=== PATIENT | male | born 1965 | race Two or more races ===

== ENCOUNTER → 2017-08-20 | Outpatient (CLI) | payer BC ==
--- NOTE | 2017-08-20 09:48 | US ---
EXAMINATION TYPE: US thyroid st tissue head/neck DATE OF EXAM: 08/20/2017 COMPARISON: NONE CLINICAL HISTORY: 52-year-old male E05.90 Thyrotoxicosis, unspecified without. Pt states recent abnor mal labs/ no known prior thyroid issues Technique: Multiple sonographic images of the thyroid gland are obtained. FINDINGS: Right Lobe: 5.2 x 1.9 x 2.1 cm Overall Parenchyma: homogenous Left Lobe: 4.5 x 1.6 x 2.4 cm Overall Parenchyma: homogeneous Isthmus Thickness: 0.2 cm Bilateral neck scanned, no evidence of lymphadenopathy. IMPRESSION: Right lobe is borderline enlarged. Overall homogeneous appearance without discrete nodule.
== END | disposition home or self-care (01) ==
LOC: RADUSWWP 08:43
PROVIDERS: ATTEND Internal Medicine Endocrinology, Diabetes & Metabolism
DX: E04.9 Nontoxic goiter, unspecified (principal)
CPT/HCPCS: 76536

== ENCOUNTER → 2017-09-10 | Outpatient (CLI) | payer BC ==
--- NOTE | 2017-09-11 11:23 | NM ---
EXAMINATION TYPE: NM thyroid image w uptake DATE OF EXAM: 09/11/2017 COMPARISON: Ultrasound 08/20/2017 HISTORY: 52-year-old male subclinical hyperthyroidism. TECHNIQUE: Thyroid iodine uptake is calculated and images performed after the oral administration of 301 uCi 1-123 Capsule. FINDINGS: There is overall somewhat diminished appearance to uptake of tracer by the thyroid gland. The 4 hour iodine uptake is calculated at 3.0% (normal range 8-14%). The 24-hour iodine uptake is calculated at 11.6% (normal range 15-35%). IMPRESSION: 1. Appearance of diffusely diminished tracer uptake by the thyroid gland. 2. 4 and 24-hour iodine uptake measurements suggest hypothyroidism. Correlate for possible etiologies such as subacute thyroiditis.
== END | disposition home or self-care (01) ==
LOC: RADNMMAIN 09:36
PROVIDERS: ATTEND Internal Medicine Endocrinology, Diabetes & Metabolism
DX: E05.90 Thyrotoxicosis, unspecified without thyrotoxic crisis or storm (principal)
CPT/HCPCS: 78014; A9516